=== PATIENT | female | born 1960 | race Caucasian/White ===

== ENCOUNTER 2019-06-08 12:20 | Emergency (ER) | payer MEDICAID ==
[~2019-06-08] VITALS: Ht 149.9 cm; Wt 77.1 kg
--- NOTE | 2019-06-08 12:21 | NUR ---
PT BIBA TO BED 10.
[2019-06-08 12:26] VITALS: BP 136/93
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
--- NOTE | 2019-06-08 13:02 | NUR ---
Dr. Torres evaluating pt at bedside.
[2019-06-08] MEDS ORDERED: KETOROLAC 30 MG/ML VIAL IVP ONE (13:05)
--- NOTE | 2019-06-08 13:15 | NUR ---
Transfer of care and report given to FRANDY Hernandez
--- NOTE | 2019-06-08 13:22 | NUR ---
PT TAKEN TO XR
--- NOTE | 2019-06-08 13:57 | NUR ---
RE ASSESSED PTS PAIN. REPORTS BACK PAIN TO BE 10/10 ON THE LEFT SIDE. EDMR NOTIFIED.
[2019-06-08] MEDS ORDERED: MORPHINE SULFATE 2 MG/ML SYR IVP ONE (14:00)
[2019-06-08 14:21] VITALS: BP 160/90
--- NOTE | 2019-06-08 14:26 | NUR ---
DPatient discharged with v/s stable. Written and verbal after care instructions given and explained. Patient alert, oriented and verbalized understanding of instructions. Ambulatory with steady gait. All questions addressed prior to discharge. ID band removed. Patient advised to follow up with PMD. Rx of TRAMADOL, MOTRIN given. Patient educated on indication of medication including possible reaction and side effects. Opportunity to ask questions provided and answered.
== END 2019-06-08 14:26 | disposition home or self-care (01) ==
LOC: MED 12:20
DX: S40.022A Contusion of left upper arm, initial encounter (principal); W18.39XA Other fall on same level, initial encounter; Y92.89 Other specified places as the place of occurrence of the external cause; Y93.89 Activity, other specified; Y99.8 Other external cause status
CPT/HCPCS: 73030; 73080; 73562; 96374; 96375; 99283; J1885; J2270